=== PATIENT | male | born 1950 | race Two or more races ===

== ENCOUNTER 2017-07-31 21:07 | Emergency (ER) | payer MEDICARE, MEDICAID ==
[~2017-07-31] VITALS: Ht 175.3 cm; Wt 86.4 kg
[2017-07-31] MEDS ORDERED: TETANUS, DIPHTHERIA, PERTUSSIS VAC/PF 0.5ML (>7YR OLD) IM ONE (23:45)
[2017-07-31] MEDS ORDERED: LIDOCAINE HCL/EPINEPHRINE 1%-EPI 1:100,000 30 ML VIAL INFIL ONE (23:45)
[2017-08-01] MEDS ORDERED: LISINOPRIL 5MG TABLET PO ONE (02:15)
[2017-08-01 03:22] VITALS: BP 169/76
== END 2017-08-01 03:19 | disposition home or self-care (01) ==
LOC: ER 21:25
DX: S01.112A Laceration without foreign body of left eyelid and periocular area, initial encounter (principal); E11.9 Type 2 diabetes mellitus without complications; I25.2 Old myocardial infarction; F03.90 Unspecified dementia, unspecified severity, without behavioral disturbance, psychotic disturbance, mood disturbance, and anxiety; F17.200 Nicotine dependence, unspecified, uncomplicated; M85.80 Other specified disorders of bone density and structure, unspecified site; F10.10 Alcohol abuse, uncomplicated; Y90.9 Presence of alcohol in blood, level not specified; Z85.46 Personal history of malignant neoplasm of prostate; Z91.81 History of falling; W01.0XXA Fall on same level from slipping, tripping and stumbling without subsequent striking against object, initial encounter; Y93.89 Activity, other specified; Y92.012 Bathroom of single-family (private) house as the place of occurrence of the external cause
CPT/HCPCS: 12013; 70450; 72125; 90471; 90715; 99284

== ENCOUNTER 2018-04-18 17:36 | Inpatient (IN) | payer MEDICARE, MEDICAID ==
[2018-04-18] VITALS (8 sets, daily range): BP systolic 113–137; BP diastolic 66–81
[~2018-04-18] VITALS: Ht 167.6 cm; Wt 72.6 kg
[~2018-04-18 17:36] MED LIST: ETOMIDATE 2MG/ML 10ML VIAL IV ONE; VECURONIUM BROMIDE 10 MG/VIAL IV ONE
[2018-04-18] MEDS ORDERED: PIPERACILLIN/TAZ 3.375G PREMIX 50 ML IV ONE (17:45)
[2018-04-18] MEDS ORDERED: ETOMIDATE 2MG/ML 10ML VIAL IV ONE ×2 (17:45)
[2018-04-18] MEDS ORDERED: SODIUM CHLORIDE 0.9% 1000ML BAG (SEPSIS BOLUS) IV ONE (17:45)
[2018-04-18] MEDS ORDERED: VANCOMYCIN 1 G PREMIX 200 ML IV ONE (17:45)
[2018-04-18] MEDS ORDERED: METRONIDAZOLE 500 MG PREMIX 100 ML IV ONE (17:45)
[2018-04-18] MEDS ORDERED: VECURONIUM BROMIDE 10 MG/VIAL IV ONE (17:45)
[2018-04-18] MEDS ORDERED: PROPOFOL 10MG/ML 100ML 100 ML IV SCH (17:45)
[2018-04-18 18:32] LABS: BG BASE EXCESS 2.6 mmol/L (-2.0-2.0); BG CARBOXYHEMOGLOBIN 0.6 % (0.5-1.5); BG DEOXYHEMOGLOBIN 1.1 % (0.0-5.0); BG FRACTION INSPIRED OXYGEN 100; BG HCO3 ACT 30.4 mmol/L (22.0-26.0); BG METHEMOGLOBIN 0.1 % (0.0-1.5); BG OXYGEN SATURATION 98.9 % (92.0-98.5); BG OXYHEMOGLOBIN 98.2 % (94.0-97.0); BG PH 7.308 (7.350-7.450); BG PO2 198.1 mmHg (75.0-100.0); BG SAMPLE SITE RIGHT BRACHIAL; BG TIDAL VOLUME(mL) 500 mL; BG TOTAL HEMOGLOBIN 13.1 g/dL (12.0-18.0); BG VENT MODE VENT - A/C; BG VENT RATE 12 set
[2018-04-18 19:10] LABS: HEMOGLOBIN. 12.9 g/dL (14.0-18.0); MEAN CORPUSCULAR HEMOGLOBIN 30.3 pg (28.0-32.0); MEAN CORPUSCULAR VOLUME 93.8 fL (80.0-94.0); MEAN PLATELET VOLUME 8.7 fl (7.4-10.4); PLATELET 323 x1000/uL (130-400); RED BLOOD CELL COUNT 4.27 mill/uL (4.7-6.1)
[2018-04-18 19:17] LABS: CLARITY URINE TURBID (CLEAR); COLOR URINE DARK YELLOW (YELLOW); KETONES URINE TRACE (NEGATIVE); LEUKOCYTE ESTERASE URINE 2+ (NEGATIVE); NITRITE URINE NEGATIVE (NEGATIVE); OCCULT BLOOD URINE NEGATIVE (NEGATIVE); PH URINE 6.5 (4.5-8.0); PROTEIN URINE 1+ (NEGATIVE); SPECIFIC GRAVITY URINE 1.029 (1.005-1.030)
[2018-04-18 19:18] LABS: INR 1.1; PARTIAL THROMBOPLASTIN TIME 30.1 sec (23.4-31.0); PROTHROMBIN TIME 11.4 sec (9.1-11.1)
[2018-04-18 19:19] LABS: CHLORIDE 110 mEq/L (98-107)
[2018-04-18 19:39] LABS: PLATELET ESTIMATE NORMAL
[2018-04-18] MEDS ORDERED: ONDANSETRON HCL 4MG/2ML INJ IV PRN (20:00)
[2018-04-18] MEDS ORDERED: CLONIDINE 0.1MG TABLET GT PRN (20:00)
[2018-04-18] MEDS ORDERED: POTASSIUM CHLORIDE 20MEQ/PACKET PEG SCH (20:00)
[2018-04-18] MEDS ORDERED: DEXTROSE 50% WATER 50ML SYRINGE IV PRN (20:00)
[2018-04-18] MEDS ORDERED: BLOOD SUGAR DIAGNOSTIC STRIP TEST SCH (20:00)
[2018-04-18] MEDS ORDERED: IPRATROPIUM/ALBUTEROL 0.5-3(2.5)MG/3ML NEB INH PRN (20:00)
[2018-04-18] MEDS ORDERED: ASPIRIN 81MG TABLET GT ONE (20:15)
[2018-04-18] MEDS ORDERED: LORAZEPAM 2MG/ML CPJ IV PRN (20:45)
[2018-04-18] MEDS ORDERED: INSULIN LISPRO 100 UNITS/ML SUBCUT SCH (21:00)
[2018-04-18] MEDS: DEXT 5%/0.45% NACL 1000ML 1,000 ML IV SCH (23:25)
[2018-04-19] VITALS (93 sets, daily range): BP systolic 93–148; BP diastolic 57–83
[2018-04-19] MEDS: IPRATROPIUM/ALBUTEROL 0.5-3(2.5)MG/3ML NEB HHN SCH ×7 (00:44→23:55)
[2018-04-19] MEDS: INSULIN GLARGINE UD 100 UNITS/ML SYR SUBCUT SCH ×3 (02:32→22:50)
[2018-04-19] MEDS: BLOOD SUGAR DIAGNOSTIC STRIP TEST SCH ×4 (02:34→17:32)
[2018-04-19] MEDS: PIPERACILLIN/TAZ 3.375G PREMIX 50 ML IV SCH ×3 (02:38→22:49)
[2018-04-19] MEDS: INSULIN LISPRO 100 UNITS/ML SUBCUT SCH ×4 (02:40→17:42)
[2018-04-19] MEDS: FAMOTIDINE 20MG TABLET GT SCH ×3 (02:45→21:06)
[2018-04-19] MEDS ORDERED: POTASSIUM CHLORIDE 20MEQ/PACKET PEG SCH (03:45)
[2018-04-19 05:24] LABS: HEMATOCRIT. 36.4 % (42.0-52.0); HEMOGLOBIN. 11.9 g/dL (14.0-18.0); MEAN CORPUSCULAR HEMOGLOBIN 30.4 pg (28.0-32.0); MEAN CORPUSCULAR VOLUME 92.7 fL (80.0-94.0); MEAN PLATELET VOLUME 8.7 fl (7.4-10.4); PLATELET 297 x1000/uL (130-400); RED BLOOD CELL COUNT 3.93 mill/uL (4.7-6.1); RED CELL DISTRIBUTION WIDTH 13.4 % (11.6-14.6)
[2018-04-19 05:32] LABS: CHLORIDE 111 mEq/L (98-107)
[2018-04-19] MEDS: ACETAMINOPHEN 650MG/20.3ML UDC GT PRN ×2 (07:05→17:32)
[2018-04-19 08:42] LABS: BG BASE EXCESS 3.4 mmol/L (-2.0-2.0); BG CARBOXYHEMOGLOBIN 0.6 % (0.5-1.5); BG DEOXYHEMOGLOBIN 1.1 % (0.0-5.0); BG FRACTION INSPIRED OXYGEN 70; BG METHEMOGLOBIN 0.2 % (0.0-1.5); BG OXYGEN SATURATION 98.9 % (92.0-98.5); BG OXYHEMOGLOBIN 98.1 % (94.0-97.0); BG PCO2 42.2 mmHg (35.0-45.0); BG PH 7.439 (7.350-7.450); BG SAMPLE SITE RIGHT RADIAL; BG TIDAL VOLUME(mL) 500 mL; BG TOTAL HEMOGLOBIN 12.4 g/dL (12.0-18.0); BG VENT MODE VENT - A/C; BG VENT RATE 12 set
[2018-04-19] MEDS: ENOXAPARIN 40MG/0.4ML SYR SUBCUT SCH (09:08)
[2018-04-19] MEDS: ASPIRIN 325MG TABLET GT SCH (09:10)
[2018-04-19] MEDS ORDERED: IPRATROPIUM/ALBUTEROL 0.5-3(2.5)MG/3ML NEB HHN PRN (10:15)
[2018-04-19] MEDS: DEXT 5%/0.45% NACL 1000ML 1,000 ML IV SCH (11:12)
[2018-04-19 11:56] LABS: PLATELET ESTIMATE NORMAL
[2018-04-19] MEDS ORDERED: IPRATROPIUM/ALBUTEROL 0.5-3(2.5)MG/3ML NEB HHN SCH (12:00)
[2018-04-19] MEDS: FLUCONAZOLE 200 MG/100ML BAG 100 ML IV SCH (12:15)
[2018-04-19] MEDS: VANCOMYCIN 1 G PREMIX 200 ML IV SCH (12:26)
[2018-04-20] VITALS (95 sets, daily range): BP systolic 103–158; BP diastolic 56–86
[2018-04-20] MEDS: BLOOD SUGAR DIAGNOSTIC STRIP TEST SCH ×5 (00:17→23:14)
[2018-04-20] MEDS: VANCOMYCIN 1 G PREMIX 200 ML IV SCH (00:40)
[2018-04-20] MEDS: INSULIN LISPRO 100 UNITS/ML SUBCUT SCH ×5 (00:40→23:18)
[2018-04-20] MEDS: IPRATROPIUM/ALBUTEROL 0.5-3(2.5)MG/3ML NEB HHN SCH ×6 (03:20→23:39)
[2018-04-20] MEDS: DEXT 5%/0.45% NACL 1000ML 1,000 ML IV SCH ×2 (05:11→12:28)
[2018-04-20 05:49] LABS: CREATINE KINASE 117 IU/L (39-308)
[2018-04-20 05:50] LABS: CREATINE KINASE MB FRACTION < 1.0 ng/mL (0.5-3.6)
[2018-04-20 07:59] LABS: BG BASE EXCESS 3.9 mmol/L (-2.0-2.0); BG CARBOXYHEMOGLOBIN 0.2 % (0.5-1.5); BG DEOXYHEMOGLOBIN 0.9 % (0.0-5.0); BG FRACTION INSPIRED OXYGEN 50; BG HCO3 ACT 27.9 mmol/L (22.0-26.0); BG METHEMOGLOBIN 0.3 % (0.0-1.5); BG OXYGEN SATURATION 99.1 % (92.0-98.5); BG OXYHEMOGLOBIN 98.6 % (94.0-97.0); BG PCO2 40.1 mmHg (35.0-45.0); BG PH 7.461 (7.350-7.450); BG PO2 217.8 mmHg (75.0-100.0); BG SAMPLE SITE RIGHT BRACHIAL; BG TIDAL VOLUME(mL) 500 mL; BG TOTAL HEMOGLOBIN 11.9 g/dL (12.0-18.0); BG VENT MODE VENT - A/C; BG VENT RATE 12 set
[2018-04-20] MEDS: FAMOTIDINE 20MG TABLET GT SCH ×2 (09:36→20:25)
[2018-04-20] MEDS: ASPIRIN 325MG TABLET GT SCH (09:36)
[2018-04-20] MEDS: ENOXAPARIN 40MG/0.4ML SYR SUBCUT SCH (09:37)
[2018-04-20] MEDS: PIPERACILLIN/TAZ 3.375G PREMIX 50 ML IV SCH ×3 (09:39→22:29)
[2018-04-20 10:12] LABS: CHLORIDE 114 mEq/L (98-107)
[2018-04-20 10:17] LABS: HEMATOCRIT. 34.6 % (42.0-52.0); HEMOGLOBIN. 11.2 g/dL (14.0-18.0); MEAN CORPUSCULAR HEMOGLOBIN 29.9 pg (28.0-32.0); MEAN CORPUSCULAR VOLUME 92.7 fL (80.0-94.0); MEAN PLATELET VOLUME 9.2 fl (7.4-10.4); PLATELET 365 x1000/uL (130-400); RED BLOOD CELL COUNT 3.74 mill/uL (4.7-6.1); RED CELL DISTRIBUTION WIDTH 13.8 % (11.6-14.6)
[2018-04-20] MEDS: INSULIN GLARGINE UD 100 UNITS/ML SYR SUBCUT SCH ×2 (10:57→21:32)
[2018-04-20 11:16] LABS: PLATELET ESTIMATE NORMAL
[2018-04-20] MEDS: FLUCONAZOLE 200 MG/100ML BAG 100 ML IV SCH (12:26)
[2018-04-20] MEDS ORDERED: POTASSIUM CHLORIDE 20MEQ/PACKET GT NR (13:30)
[2018-04-20] MEDS: VANCOMYCIN 1250MG in DEXTROSE 5% WATER 250ML IV SCH (14:49)
[2018-04-20] MEDS: POTASSIUM CHLORIDE INJ 40 MEQ in DEXTROSE 5% WATER 1,000 ML IV SCH (15:39)
[2018-04-21] VITALS (95 sets, daily range): BP systolic 106–161; BP diastolic 46–87
[2018-04-21] MEDS: IPRATROPIUM/ALBUTEROL 0.5-3(2.5)MG/3ML NEB HHN SCH ×5 (03:55→20:16)
[2018-04-21] MEDS: POTASSIUM CHLORIDE INJ 40 MEQ in DEXTROSE 5% WATER 1,000 ML IV SCH ×2 (04:04→17:38)
[2018-04-21 05:06] LABS: CHLORIDE 111 mEq/L (98-107)
[2018-04-21 05:13] LABS: PHOSPHORUS 2.4 mg/dL (2.5-4.9)
[2018-04-21] MEDS: BLOOD SUGAR DIAGNOSTIC STRIP TEST SCH ×3 (05:26→17:07)
[2018-04-21] MEDS: INSULIN LISPRO 100 UNITS/ML SUBCUT SCH ×3 (05:26→17:40)
[2018-04-21] MEDS: PIPERACILLIN/TAZ 3.375G PREMIX 50 ML IV SCH ×3 (06:08→23:16)
[2018-04-21 07:37] LABS: BG BASE EXCESS 4.7 mmol/L (-2.0-2.0); BG CARBOXYHEMOGLOBIN 0.3 % (0.5-1.5); BG DEOXYHEMOGLOBIN 1.9 % (0.0-5.0); BG FRACTION INSPIRED OXYGEN 40; BG HCO3 ACT 29.4 mmol/L (22.0-26.0); BG METHEMOGLOBIN 0.3 % (0.0-1.5); BG OXYGEN SATURATION 98.1 % (92.0-98.5); BG OXYHEMOGLOBIN 97.5 % (94.0-97.0); BG PCO2 44.4 mmHg (35.0-45.0); BG PH 7.439 (7.350-7.450); BG PO2 133.2 mmHg (75.0-100.0); BG SAMPLE SITE RIGHT RADIAL; BG TIDAL VOLUME(mL) 500 mL; BG TOTAL HEMOGLOBIN 10.1 g/dL (12.0-18.0); BG VENT MODE VENT - A/C; BG VENT RATE 12 set
[2018-04-21] MEDS: FAMOTIDINE 20MG TABLET GT SCH ×2 (08:42→20:24)
[2018-04-21] MEDS: VANCOMYCIN 1250MG in DEXTROSE 5% WATER 250ML IV SCH (08:42)
[2018-04-21] MEDS: ASPIRIN 325MG TABLET GT SCH (08:42)
[2018-04-21] MEDS: ENOXAPARIN 40MG/0.4ML SYR SUBCUT SCH (08:43)
[2018-04-21] MEDS: CARVEDILOL 3.125 MG TABLET PO SCH ×2 (10:25→20:24)
[2018-04-21] MEDS: LOSARTAN POTASSIUM 25 MG TABLET PO SCH (10:26)
[2018-04-21] MEDS: INSULIN GLARGINE UD 100 UNITS/ML SYR SUBCUT SCH ×2 (10:27→23:20)
[2018-04-21] MEDS: FLUCONAZOLE 200 MG/100ML BAG 100 ML IV SCH (11:47)
[2018-04-21 13:39] LABS: BG BASE EXCESS 4.6 mmol/L (-2.0-2.0); BG CARBOXYHEMOGLOBIN 0.6 % (0.5-1.5); BG DEOXYHEMOGLOBIN 1.7 % (0.0-5.0); BG FRACTION INSPIRED OXYGEN 35; BG HCO3 ACT 28.8 mmol/L (22.0-26.0); BG OXYGEN SATURATION 98.3 % (92.0-98.5); BG OXYHEMOGLOBIN 97.7 % (94.0-97.0); BG PCO2 41.4 mmHg (35.0-45.0); BG PH 7.461 (7.350-7.450); BG PO2 118.4 mmHg (75.0-100.0); BG PRESSURE SUPPORT 8; BG SAMPLE SITE RIGHT RADIAL; BG TOTAL HEMOGLOBIN 11.3 g/dL (12.0-18.0); BG VENT MODE VENT - CPAP
[2018-04-22] VITALS (45 sets, daily range): BP systolic 116–149; BP diastolic 58–79
[2018-04-22] MEDS: IPRATROPIUM/ALBUTEROL 0.5-3(2.5)MG/3ML NEB HHN SCH ×6 (00:10→20:08)
[2018-04-22] MEDS: INSULIN LISPRO 100 UNITS/ML SUBCUT SCH ×4 (01:42→18:24)
[2018-04-22] MEDS: VANCOMYCIN 1250MG in DEXTROSE 5% WATER 250ML IV SCH (02:56)
[2018-04-22] MEDS: BLOOD SUGAR DIAGNOSTIC STRIP TEST SCH ×4 (05:16→18:20)
[2018-04-22] MEDS: PIPERACILLIN/TAZ 3.375G PREMIX 50 ML IV SCH ×3 (06:12→23:23)
[2018-04-22 06:45] LABS: HEMATOCRIT. 32.9 % (42.0-52.0); HEMOGLOBIN. 11.1 g/dL (14.0-18.0); MEAN CORPUSCULAR HEMOGLOBIN 30.4 pg (28.0-32.0); MEAN CORPUSCULAR VOLUME 90.5 fL (80.0-94.0); MEAN PLATELET VOLUME 8.8 fl (7.4-10.4); PLATELET 403 x1000/uL (130-400); RED BLOOD CELL COUNT 3.63 mill/uL (4.7-6.1)
[2018-04-22 06:51] LABS: CHLORIDE 107 mEq/L (98-107)
[2018-04-22] MEDS: CARVEDILOL 3.125 MG TABLET PO SCH ×2 (09:38→20:11)
[2018-04-22] MEDS: FAMOTIDINE 20MG TABLET GT SCH ×2 (09:38→20:11)
[2018-04-22] MEDS: ASPIRIN 325MG TABLET GT SCH (09:38)
[2018-04-22] MEDS: ENOXAPARIN 40MG/0.4ML SYR SUBCUT SCH (09:38)
[2018-04-22] MEDS: LOSARTAN POTASSIUM 25 MG TABLET PO SCH (09:38)
[2018-04-22] MEDS: INSULIN GLARGINE UD 100 UNITS/ML SYR SUBCUT SCH ×2 (09:39→22:25)
[2018-04-22 11:14] LABS: PLATELET ESTIMATE SLIGHTLY INCREASED
[2018-04-22] MEDS: POTASSIUM CHLORIDE INJ 40 MEQ in DEXTROSE 5% WATER 1,000 ML IV SCH (12:28)
[2018-04-22] MEDS: FLUCONAZOLE 200 MG/100ML BAG 100 ML IV SCH (12:30)
[2018-04-23] VITALS (24 sets, daily range): BP systolic 108–146; BP diastolic 56–79
[2018-04-23] MEDS: IPRATROPIUM/ALBUTEROL 0.5-3(2.5)MG/3ML NEB HHN SCH ×3 (00:06→19:56)
[2018-04-23] MEDS: INSULIN LISPRO 100 UNITS/ML SUBCUT SCH ×4 (01:21→18:08)
[2018-04-23] MEDS: POTASSIUM CHLORIDE INJ 40 MEQ in DEXTROSE 5% WATER 1,000 ML IV SCH ×2 (01:50→10:04)
[2018-04-23] MEDS: BLOOD SUGAR DIAGNOSTIC STRIP TEST SCH ×4 (06:03→18:07)
[2018-04-23] MEDS ORDERED: LIDOCAINE HCL 1% 20ML VIAL (Pyxis) INJ ONE (06:44)
[2018-04-23] MEDS: PIPERACILLIN/TAZ 3.375G PREMIX 50 ML IV SCH ×3 (07:22→23:05)
[2018-04-23] MEDS: ENOXAPARIN 40MG/0.4ML SYR SUBCUT SCH (08:45)
[2018-04-23] MEDS: ASPIRIN 325MG TABLET GT SCH (08:45)
[2018-04-23] MEDS: FAMOTIDINE 20MG TABLET GT SCH ×2 (08:46→21:34)
[2018-04-23] MEDS: CARVEDILOL 3.125 MG TABLET PO SCH ×2 (08:46→21:34)
[2018-04-23] MEDS: LOSARTAN POTASSIUM 25 MG TABLET PO SCH (08:46)
[2018-04-23] MEDS: INSULIN GLARGINE UD 100 UNITS/ML SYR SUBCUT SCH ×2 (10:05→22:11)
[2018-04-23] MEDS: FLUCONAZOLE 200 MG/100ML BAG 100 ML IV SCH (10:56)
[2018-04-24] VITALS (43 sets, daily range): BP systolic 80–147; BP diastolic 53–106
[2018-04-24] MEDS: IPRATROPIUM/ALBUTEROL 0.5-3(2.5)MG/3ML NEB HHN SCH ×6 (00:38→20:31)
[2018-04-24] MEDS: POTASSIUM CHLORIDE INJ 40 MEQ in DEXTROSE 5% WATER 1,000 ML IV SCH ×2 (01:15→14:30)
[2018-04-24] MEDS: INSULIN LISPRO 100 UNITS/ML SUBCUT SCH ×5 (06:00→23:05)
[2018-04-24] MEDS: BLOOD SUGAR DIAGNOSTIC STRIP TEST SCH ×5 (06:33→23:03)
[2018-04-24] MEDS: PIPERACILLIN/TAZ 3.375G PREMIX 50 ML IV SCH (06:34)
[2018-04-24] MEDS: ASPIRIN 325MG TABLET GT SCH (08:34)
[2018-04-24] MEDS: FAMOTIDINE 20MG TABLET GT SCH ×2 (08:34→20:34)
[2018-04-24] MEDS: LOSARTAN POTASSIUM 25 MG TABLET PO SCH (08:34)
[2018-04-24] MEDS: ENOXAPARIN 40MG/0.4ML SYR SUBCUT SCH (08:34)
[2018-04-24] MEDS: CARVEDILOL 3.125 MG TABLET PO SCH ×2 (09:00→20:34)
[2018-04-24 09:46] LABS: HEMATOCRIT. 35.6 % (42.0-52.0); HEMOGLOBIN. 11.8 g/dL (14.0-18.0); MEAN CORPUSCULAR HEMOGLOBIN 29.8 pg (28.0-32.0); MEAN CORPUSCULAR VOLUME 89.8 fL (80.0-94.0); PLATELET 471 x1000/uL (130-400); RED BLOOD CELL COUNT 3.96 mill/uL (4.7-6.1); RED CELL DISTRIBUTION WIDTH 13.2 % (11.6-14.6)
[2018-04-24 09:54] LABS: CHLORIDE 101 mEq/L (98-107)
[2018-04-24 10:02] LABS: PHOSPHORUS 3.2 mg/dL (2.5-4.9)
[2018-04-24 11:15] LABS: BG DEOXYHEMOGLOBIN 10.5 % (0.0-5.0); BG FRACTION INSPIRED OXYGEN 50; BG HCO3 ACT 28.6 mmol/L (22.0-26.0); BG METHEMOGLOBIN 0.3 % (0.0-1.5); BG OXYGEN SATURATION 89.4 % (92.0-98.5); BG OXYHEMOGLOBIN 88.2 % (94.0-97.0); BG PCO2 38.8 mmHg (35.0-45.0); BG PH 7.486 (7.350-7.450); BG PO2 56.1 mmHg (75.0-100.0); BG SAMPLE SITE RIGHT RADIAL; BG TOTAL HEMOGLOBIN 12.2 g/dL (12.0-18.0); BG VENT MODE MASK - VENTI
[2018-04-24] MEDS: INSULIN GLARGINE UD 100 UNITS/ML SYR SUBCUT SCH ×2 (11:37→22:58)
[2018-04-24] MEDS ORDERED: ENOXAPARIN 30MG/0.3ML SYR SUBCUT NR (12:00)
[2018-04-24] MEDS: CEFTRIAXONE 1 G PREMIX 50 ML IV SCH (12:22)
[2018-04-24 13:10] LABS: BG BASE EXCESS 3.2 mmol/L (-2.0-2.0); BG CARBOXYHEMOGLOBIN 0.4 % (0.5-1.5); BG DEOXYHEMOGLOBIN 4.4 % (0.0-5.0); BG FRACTION INSPIRED OXYGEN 40; BG HCO3 ACT 26.7 mmol/L (22.0-26.0); BG METHEMOGLOBIN 0.3 % (0.0-1.5); BG OXYGEN SATURATION 95.6 % (92.0-98.5); BG OXYHEMOGLOBIN 94.9 % (94.0-97.0); BG PCO2 36.9 mmHg (35.0-45.0); BG PH 7.478 (7.350-7.450); BG SAMPLE SITE RIGHT RADIAL; BG TIDAL VOLUME(mL) 500 mL; BG TOTAL HEMOGLOBIN 12.4 g/dL (12.0-18.0); BG VENT MODE VENT - A/C; BG VENT RATE 12 set
[2018-04-24 13:49] LABS: PLATELET ESTIMATE INCREASED
[2018-04-24] MEDS ORDERED: ETOMIDATE 2MG/ML 10ML VIAL IV ONE (14:20)
[2018-04-24] MEDS ORDERED: VECURONIUM BROMIDE 10 MG/VIAL IV ONE (14:20)
[2018-04-24] MEDS ORDERED: SODIUM CHLORIDE 0.9% 10ML VIAL ONE (14:20)
[2018-04-24] MEDS ORDERED: ENOXAPARIN 80MG/0.8ML SYR SUBCUT SCH (21:00)
[2018-04-25] VITALS (80 sets, daily range): BP systolic 92–153; BP diastolic 50–74
[2018-04-25] MEDS: IPRATROPIUM/ALBUTEROL 0.5-3(2.5)MG/3ML NEB HHN SCH ×5 (00:18→15:56)
[2018-04-25] MEDS: POTASSIUM CHLORIDE INJ 40 MEQ in DEXTROSE 5% WATER 1,000 ML IV SCH (03:04)
[2018-04-25] MEDS: BLOOD SUGAR DIAGNOSTIC STRIP TEST SCH ×4 (05:06→23:42)
[2018-04-25] MEDS: INSULIN LISPRO 100 UNITS/ML SUBCUT SCH ×4 (05:27→23:43)
[2018-04-25 05:36] LABS: INR 1.1; PARTIAL THROMBOPLASTIN TIME 29.7 sec (23.4-31.0); PROTHROMBIN TIME 10.9 sec (9.1-11.1)
[2018-04-25 05:42] LABS: CHLORIDE 98 mEq/L (98-107)
[2018-04-25 05:49] LABS: HEMATOCRIT. 35.1 % (42.0-52.0); HEMOGLOBIN. 11.7 g/dL (14.0-18.0); MEAN CORPUSCULAR HEMOGLOBIN 29.7 pg (28.0-32.0); MEAN CORPUSCULAR VOLUME 89.2 fL (80.0-94.0); MEAN PLATELET VOLUME 8.7 fl (7.4-10.4); PLATELET 521 x1000/uL (130-400); RED BLOOD CELL COUNT 3.93 mill/uL (4.7-6.1); RED CELL DISTRIBUTION WIDTH 13.3 % (11.6-14.6)
[2018-04-25] MEDS: ASPIRIN 325MG TABLET GT SCH (07:32)
[2018-04-25] MEDS: FAMOTIDINE 20MG TABLET GT SCH ×2 (07:32→21:49)
[2018-04-25 08:46] LABS: PLATELET ESTIMATE INCREASED
[2018-04-25] MEDS: LOSARTAN POTASSIUM 25 MG TABLET PO SCH (09:00)
[2018-04-25] MEDS: CARVEDILOL 3.125 MG TABLET PO SCH ×2 (09:00→21:00)
[2018-04-25] MEDS: INSULIN GLARGINE UD 100 UNITS/ML SYR SUBCUT SCH ×2 (10:49→22:06)
[2018-04-25] MEDS ORDERED: MIDAZOLAM HCL 2 MG/2 ML VIAL ONE (11:29)
[2018-04-25] MEDS ORDERED: FENTANYL CITRATE/PF 50MCG/ML 2ML VIAL ONE (11:29)
[2018-04-25] MEDS ORDERED: PROPOFOL 200MG/20ML VIAL IV ONE (11:30)
[2018-04-25] MEDS ORDERED: CEFAZOLIN SODIUM 1000MG/VIAL ONE (11:30)
[2018-04-25] MEDS ORDERED: SODIUM CHLORIDE 0.9% 10ML VIAL ONE (11:32)
[2018-04-25] MEDS ORDERED: VECURONIUM BROMIDE 10 MG/VIAL IV ONE (11:32)
[2018-04-25] MEDS: CEFTRIAXONE 1 G PREMIX 50 ML IV SCH (11:49)
[2018-04-26] VITALS (12 sets, daily range): BP systolic 99–135; BP diastolic 51–77
[2018-04-26] MEDS: IPRATROPIUM/ALBUTEROL 0.5-3(2.5)MG/3ML NEB HHN SCH ×6 (00:23→20:14)
[2018-04-26] MEDS: INSULIN LISPRO 100 UNITS/ML SUBCUT SCH ×4 (05:37→22:59)
[2018-04-26] MEDS: BLOOD SUGAR DIAGNOSTIC STRIP TEST SCH ×4 (05:37→22:59)
[2018-04-26] MEDS: CARVEDILOL 3.125 MG TABLET PO SCH ×2 (08:21→20:30)
[2018-04-26] MEDS: FAMOTIDINE 20MG TABLET GT SCH ×2 (08:21→20:30)
[2018-04-26] MEDS: LOSARTAN POTASSIUM 25 MG TABLET PO SCH (08:21)
[2018-04-26] MEDS: ASPIRIN 325MG TABLET GT SCH (09:00)
[2018-04-26] MEDS: INSULIN GLARGINE UD 100 UNITS/ML SYR SUBCUT SCH ×2 (09:03→23:00)
[2018-04-26] MEDS: CEFTRIAXONE 1 G PREMIX 50 ML IV SCH (11:59)
[2018-04-26] MEDS: ENOXAPARIN 40MG/0.4ML SYR SUBCUT SCH (13:59)
[2018-04-26] MEDS ORDERED: LORAZEPAM 2MG/ML CPJ IV PRN (15:00)
[2018-04-26 15:10] LABS: BG CARBOXYHEMOGLOBIN 0.7 % (0.5-1.5); BG DEOXYHEMOGLOBIN 3.9 % (0.0-5.0); BG FRACTION INSPIRED OXYGEN 100; BG METHEMOGLOBIN 0.1 % (0.0-1.5); BG OXYGEN SATURATION 96.1 % (92.0-98.5); BG OXYHEMOGLOBIN 95.3 % (94.0-97.0); BG PCO2 40.5 mmHg (35.0-45.0); BG PH 7.473 (7.350-7.450); BG PO2 80.5 mmHg (75.0-100.0); BG SAMPLE SITE RIGHT BRACHIAL; BG TIDAL VOLUME(mL) 500 mL; BG TOTAL HEMOGLOBIN 11.4 g/dL (12.0-18.0); BG VENT MODE VENT - A/C; BG VENT RATE 12 set
[2018-04-27] VITALS (13 sets, daily range): BP systolic 108–131; BP diastolic 53–65
[2018-04-27] MEDS: IPRATROPIUM/ALBUTEROL 0.5-3(2.5)MG/3ML NEB HHN SCH ×6 (00:03→20:04)
[2018-04-27] MEDS: BLOOD SUGAR DIAGNOSTIC STRIP TEST SCH ×3 (05:17→18:04)
[2018-04-27] MEDS: INSULIN LISPRO 100 UNITS/ML SUBCUT SCH ×3 (05:17→18:00)
[2018-04-27] MEDS: FAMOTIDINE 20MG TABLET GT SCH ×2 (08:41→21:02)
[2018-04-27] MEDS: LOSARTAN POTASSIUM 25 MG TABLET PO SCH (08:41)
[2018-04-27] MEDS: ASPIRIN 325MG TABLET GT SCH (08:42)
[2018-04-27] MEDS: CARVEDILOL 3.125 MG TABLET PO SCH ×2 (08:42→21:00)
[2018-04-27] MEDS: INSULIN GLARGINE UD 100 UNITS/ML SYR SUBCUT SCH ×2 (10:06→21:03)
[2018-04-27] MEDS: CEFTRIAXONE 1 G PREMIX 50 ML IV SCH (12:23)
[2018-04-27] MEDS: ENOXAPARIN 40MG/0.4ML SYR SUBCUT SCH (13:46)
[2018-04-28] VITALS (12 sets, daily range): BP systolic 118–138; BP diastolic 59–67
[2018-04-28] MEDS: IPRATROPIUM/ALBUTEROL 0.5-3(2.5)MG/3ML NEB HHN SCH ×6 (00:08→20:17)
[2018-04-28] MEDS: BLOOD SUGAR DIAGNOSTIC STRIP TEST SCH ×4 (00:29→18:01)
[2018-04-28] MEDS: INSULIN LISPRO 100 UNITS/ML SUBCUT SCH ×4 (05:21→18:00)
[2018-04-28] MEDS: ASPIRIN 325MG TABLET GT SCH (09:37)
[2018-04-28] MEDS: LOSARTAN POTASSIUM 25 MG TABLET PO SCH (09:37)
[2018-04-28] MEDS: FAMOTIDINE 20MG TABLET GT SCH ×2 (09:37→20:51)
[2018-04-28] MEDS: CARVEDILOL 3.125 MG TABLET PO SCH ×2 (09:37→20:51)
[2018-04-28] MEDS: INSULIN GLARGINE UD 100 UNITS/ML SYR SUBCUT SCH ×2 (10:58→22:00)
[2018-04-28] MEDS: CEFTRIAXONE 1 G PREMIX 50 ML IV SCH (11:00)
[2018-04-28] MEDS: ENOXAPARIN 40MG/0.4ML SYR SUBCUT SCH (14:52)
[2018-04-29] VITALS (17 sets, daily range): BP systolic 111–147; BP diastolic 57–81
[2018-04-29] MEDS: IPRATROPIUM/ALBUTEROL 0.5-3(2.5)MG/3ML NEB HHN SCH ×6 (00:16→20:37)
[2018-04-29] MEDS: INSULIN LISPRO 100 UNITS/ML SUBCUT SCH ×3 (06:00→12:30)
[2018-04-29] MEDS: BLOOD SUGAR DIAGNOSTIC STRIP TEST SCH ×4 (06:00→23:58)
[2018-04-29] MEDS: ASPIRIN 325MG TABLET GT SCH (09:50)
[2018-04-29] MEDS: FAMOTIDINE 20MG TABLET GT SCH ×2 (09:50→21:30)
[2018-04-29] MEDS: CARVEDILOL 3.125 MG TABLET PO SCH ×2 (09:51→21:30)
[2018-04-29] MEDS: LOSARTAN POTASSIUM 25 MG TABLET PO SCH (09:51)
[2018-04-29] MEDS: INSULIN GLARGINE UD 100 UNITS/ML SYR SUBCUT SCH (09:55)
[2018-04-29] MEDS: ENOXAPARIN 40MG/0.4ML SYR SUBCUT SCH (13:46)
[2018-04-29] MEDS: CEFTRIAXONE 1 G PREMIX 50 ML IV SCH (13:53)
[2018-04-30] VITALS (12 sets, daily range): BP systolic 121–140; BP diastolic 58–69
[2018-04-30] MEDS: INSULIN LISPRO 100 UNITS/ML SUBCUT SCH ×4 (00:02→17:26)
[2018-04-30] MEDS: INSULIN GLARGINE UD 100 UNITS/ML SYR SUBCUT SCH ×2 (00:02→09:52)
[2018-04-30] MEDS: IPRATROPIUM/ALBUTEROL 0.5-3(2.5)MG/3ML NEB HHN SCH ×7 (00:05→23:46)
[2018-04-30] MEDS: BLOOD SUGAR DIAGNOSTIC STRIP TEST SCH ×3 (06:48→17:25)
[2018-04-30 08:06] LABS: HEMATOCRIT. 30.4 % (42.0-52.0); HEMOGLOBIN. 10.4 g/dL (14.0-18.0); MEAN CORPUSCULAR HEMOGLOBIN 30.4 pg (28.0-32.0); MEAN PLATELET VOLUME 7.8 fl (7.4-10.4); PLATELET 468 x1000/uL (130-400); RED BLOOD CELL COUNT 3.42 mill/uL (4.7-6.1); RED CELL DISTRIBUTION WIDTH 13.2 % (11.6-14.6)
[2018-04-30 08:22] LABS: CHLORIDE 101 mEq/L (98-107)
[2018-04-30] MEDS: FAMOTIDINE 20MG TABLET GT SCH ×2 (09:50→20:49)
[2018-04-30] MEDS: CARVEDILOL 3.125 MG TABLET PO SCH ×2 (09:51→20:49)
[2018-04-30] MEDS: ASPIRIN 325MG TABLET GT SCH (09:51)
[2018-04-30] MEDS: LOSARTAN POTASSIUM 25 MG TABLET PO SCH (09:51)
[2018-04-30 12:14] LABS: PLATELET ESTIMATE INCREASED
[2018-04-30] MEDS: CEFTRIAXONE 1 G PREMIX 50 ML IV SCH (12:16)
[2018-04-30] MEDS: ENOXAPARIN 40MG/0.4ML SYR SUBCUT SCH (14:25)
[2018-05-01] VITALS (12 sets, daily range): BP systolic 112–146; BP diastolic 57–102
[2018-05-01] MEDS: INSULIN GLARGINE UD 100 UNITS/ML SYR SUBCUT SCH ×3 (00:40→23:57)
[2018-05-01] MEDS: BLOOD SUGAR DIAGNOSTIC STRIP TEST SCH ×5 (00:40→23:54)
[2018-05-01] MEDS: IPRATROPIUM/ALBUTEROL 0.5-3(2.5)MG/3ML NEB HHN SCH ×5 (03:47→20:08)
[2018-05-01 06:00] LABS: BASOPHILS % 1.2 % (0.0-2.0); HEMATOCRIT. 30.9 % (42.0-52.0); HEMOGLOBIN. 10.4 g/dL (14.0-18.0); LYMPHOCYTES % 8.8 % (20.0-50.0); MEAN CORPUSCULAR HEMOGLOBIN 29.8 pg (28.0-32.0); MEAN CORPUSCULAR VOLUME 88.7 fL (80.0-94.0); MONOCYTES % 4.5 % (2.0-8.0); NEUTROPHILS % 83.5 % (40.0-76.0); PLATELET 425 x1000/uL (130-400); RED BLOOD CELL COUNT 3.48 mill/uL (4.7-6.1); RED CELL DISTRIBUTION WIDTH 13.4 % (11.6-14.6)
[2018-05-01 06:24] LABS: CHLORIDE 101 mEq/L (98-107)
[2018-05-01] MEDS: INSULIN LISPRO 100 UNITS/ML SUBCUT SCH ×4 (08:49→18:00)
[2018-05-01] MEDS: ASPIRIN 325MG TABLET GT SCH (09:49)
[2018-05-01] MEDS: FAMOTIDINE 20MG TABLET GT SCH ×2 (09:49→21:24)
[2018-05-01] MEDS: CARVEDILOL 3.125 MG TABLET PO SCH ×2 (09:50→21:00)
[2018-05-01] MEDS: LOSARTAN POTASSIUM 25 MG TABLET PO SCH (09:50)
[2018-05-01] MEDS ORDERED: LIDOCAINE HCL/EPINEPHRINE 1%-EPI 1:100,000 20 ML VIAL INFIL NR (12:00)
[2018-05-01] MEDS: CEFTRIAXONE 1 G PREMIX 50 ML IV SCH (12:11)
[2018-05-01] MEDS: ENOXAPARIN 40MG/0.4ML SYR SUBCUT SCH (13:48)
[2018-05-02] VITALS (11 sets, daily range): BP systolic 97–161; BP diastolic 55–75
[2018-05-02] MEDS: INSULIN LISPRO 100 UNITS/ML SUBCUT SCH ×5 (00:01→23:36)
[2018-05-02] MEDS: ACETYLCYSTEINE 100MG/ML 10% VIAL 4ML INH SCH ×4 (00:13→20:15)
[2018-05-02] MEDS: IPRATROPIUM/ALBUTEROL 0.5-3(2.5)MG/3ML NEB HHN SCH ×6 (00:13→20:15)
[2018-05-02] MEDS: BLOOD SUGAR DIAGNOSTIC STRIP TEST SCH ×4 (07:00→23:36)
[2018-05-02] MEDS: ASPIRIN 325MG TABLET GT SCH (08:42)
[2018-05-02] MEDS: LOSARTAN POTASSIUM 25 MG TABLET PO SCH (08:42)
[2018-05-02] MEDS: FAMOTIDINE 20MG TABLET GT SCH ×2 (08:42→21:55)
[2018-05-02] MEDS: CARVEDILOL 3.125 MG TABLET PO SCH ×2 (08:43→21:00)
[2018-05-02] MEDS: INSULIN GLARGINE UD 100 UNITS/ML SYR SUBCUT SCH ×2 (10:07→22:00)
[2018-05-02] MEDS: ENOXAPARIN 40MG/0.4ML SYR SUBCUT SCH (13:00)
[2018-05-03] VITALS (9 sets, daily range): BP systolic 105–133; BP diastolic 52–71
[2018-05-03] MEDS: IPRATROPIUM/ALBUTEROL 0.5-3(2.5)MG/3ML NEB HHN SCH ×6 (01:12→20:42)
[2018-05-03] MEDS: BLOOD SUGAR DIAGNOSTIC STRIP TEST SCH ×4 (07:00→23:24)
[2018-05-03] MEDS: INSULIN LISPRO 100 UNITS/ML SUBCUT SCH ×4 (07:00→23:27)
[2018-05-03] MEDS: ACETYLCYSTEINE 100MG/ML 10% VIAL 4ML INH SCH ×2 (08:00→15:45)
[2018-05-03] MEDS: ASPIRIN 325MG TABLET GT SCH (09:53)
[2018-05-03] MEDS: FAMOTIDINE 20MG TABLET GT SCH ×2 (09:54→21:39)
[2018-05-03] MEDS: CARVEDILOL 3.125 MG TABLET PO SCH ×2 (09:54→21:40)
[2018-05-03] MEDS: LOSARTAN POTASSIUM 25 MG TABLET PO SCH (09:54)
[2018-05-03] MEDS: INSULIN GLARGINE UD 100 UNITS/ML SYR SUBCUT SCH ×2 (09:56→23:23)
[2018-05-03] MEDS: ENOXAPARIN 40MG/0.4ML SYR SUBCUT SCH (13:47)
[2018-05-03] MEDS: SODIUM HYPOCHLORITE 0.125% 473ML SOLUTION TOP SCH (15:00)
[2018-05-04] VITALS (13 sets, daily range): BP systolic 101–124; BP diastolic 42–61
[2018-05-04] MEDS: ACETYLCYSTEINE 100MG/ML 10% VIAL 4ML INH SCH ×3 (01:02→15:39)
[2018-05-04] MEDS: IPRATROPIUM/ALBUTEROL 0.5-3(2.5)MG/3ML NEB HHN SCH ×6 (01:02→21:37)
[2018-05-04] MEDS: BLOOD SUGAR DIAGNOSTIC STRIP TEST SCH ×3 (06:00→18:06)
[2018-05-04] MEDS: INSULIN LISPRO 100 UNITS/ML SUBCUT SCH ×3 (06:00→18:12)
[2018-05-04] MEDS: CARVEDILOL 3.125 MG TABLET PO SCH ×2 (09:00→21:00)
[2018-05-04] MEDS: ASPIRIN 325MG TABLET GT SCH (09:50)
[2018-05-04] MEDS: LOSARTAN POTASSIUM 25 MG TABLET PO SCH (09:50)
[2018-05-04] MEDS: FAMOTIDINE 20MG TABLET GT SCH ×2 (09:50→21:08)
[2018-05-04] MEDS: SODIUM HYPOCHLORITE 0.125% 473ML SOLUTION TOP SCH (09:54)
[2018-05-04] MEDS: INSULIN GLARGINE UD 100 UNITS/ML SYR SUBCUT SCH ×2 (09:56→23:07)
[2018-05-04] MEDS: ENOXAPARIN 40MG/0.4ML SYR SUBCUT SCH (13:13)
[2018-05-05] VITALS (10 sets, daily range): BP systolic 116–144; BP diastolic 53–64
[2018-05-05] MEDS: IPRATROPIUM/ALBUTEROL 0.5-3(2.5)MG/3ML NEB HHN SCH ×4 (01:15→15:41)
[2018-05-05] MEDS: ACETYLCYSTEINE 100MG/ML 10% VIAL 4ML INH SCH ×3 (01:16→15:30)
[2018-05-05] MEDS: INSULIN LISPRO 100 UNITS/ML SUBCUT SCH ×4 (06:00→18:00)
[2018-05-05] MEDS: BLOOD SUGAR DIAGNOSTIC STRIP TEST SCH ×4 (06:00→18:38)
[2018-05-05] MEDS: CARVEDILOL 3.125 MG TABLET PO SCH (09:00)
[2018-05-05] MEDS: ASPIRIN 325MG TABLET GT SCH (09:52)
[2018-05-05] MEDS: FAMOTIDINE 20MG TABLET GT SCH (09:52)
[2018-05-05] MEDS: LOSARTAN POTASSIUM 25 MG TABLET PO SCH (09:52)
[2018-05-05] MEDS: SODIUM HYPOCHLORITE 0.125% 473ML SOLUTION TOP SCH (09:53)
[2018-05-05] MEDS: INSULIN GLARGINE UD 100 UNITS/ML SYR SUBCUT SCH (10:45)
[2018-05-05] MEDS: ENOXAPARIN 40MG/0.4ML SYR SUBCUT SCH (14:43)
== END 2018-05-05 20:07 | DRG 3 ==
LOC: ER 17:36 → ENRESERV 18:04 → MICUSO 19:38 → EDBEDREQ 19:40 → 5EST 04-25 20:20
PROVIDERS: ADMIT Internal Medicine; ATTEND Internal Medicine
PROC: 5A1955Z Respiratory Ventilation, Greater than 96 Consecutive Hours (ICD-10-PCS; principal; 2018-04-18)
PROC: 0BH18EZ Insertion of Endotracheal Airway into Trachea, Via Natural or Artificial Opening Endoscopic (ICD-10-PCS; 2018-04-18)
PROC: 05H533Z Insertion of Infusion Device into Right Subclavian Vein, Percutaneous Approach (ICD-10-PCS; 2018-04-23)
PROC: B546ZZA Ultrasonography of Right Subclavian Vein, Guidance (ICD-10-PCS; 2018-04-23)
PROC: 0BH17EZ Insertion of Endotracheal Airway into Trachea, Via Natural or Artificial Opening (ICD-10-PCS; 2018-04-24)
PROC: 5A1955Z Respiratory Ventilation, Greater than 96 Consecutive Hours (ICD-10-PCS; 2018-04-24)
PROC: 0B110F4 Bypass Trachea to Cutaneous with Tracheostomy Device, Open Approach (ICD-10-PCS; 2018-04-25)
PROC: 0GBJ0ZZ Excision of Thyroid Gland Isthmus, Open Approach (ICD-10-PCS; 2018-04-25)
PROC: 0KBP0ZZ Excision of Left Hip Muscle, Open Approach (ICD-10-PCS; 2018-05-01)
PROC: 0KBN0ZZ Excision of Right Hip Muscle, Open Approach (ICD-10-PCS; 2018-05-01)
DX: A41.9 Sepsis, unspecified organism (principal); L89.154 Pressure ulcer of sacral region, stage 4; L89.324 Pressure ulcer of left buttock, stage 4; L89.314 Pressure ulcer of right buttock, stage 4; J69.0 Pneumonitis due to inhalation of food and vomit; E43 Unspecified severe protein-calorie malnutrition; I63.9 Cerebral infarction, unspecified; I21.4 Non-ST elevation (NSTEMI) myocardial infarction; I50.23 Acute on chronic systolic (congestive) heart failure; J96.21 Acute and chronic respiratory failure with hypoxia; E87.0 Hyperosmolality and hypernatremia; G93.40 Encephalopathy, unspecified; I42.9 Cardiomyopathy, unspecified; E87.1 Hypo-osmolality and hyponatremia; B37.49 Other urogenital candidiasis; I82.431 Acute embolism and thrombosis of right popliteal vein; I82.411 Acute embolism and thrombosis of right femoral vein; G81.91 Hemiplegia, unspecified affecting right dominant side; I49.1 Atrial premature depolarization; G31.9 Degenerative disease of nervous system, unspecified; H70.93 Unspecified mastoiditis, bilateral; I25.10 Atherosclerotic heart disease of native coronary artery without angina pectoris; F10.10 Alcohol abuse, uncomplicated; F03.90 Unspecified dementia, unspecified severity, without behavioral disturbance, psychotic disturbance, mood disturbance, and anxiety; R13.10 Dysphagia, unspecified; E11.9 Type 2 diabetes mellitus without complications; E87.6 Hypokalemia; I11.0 Hypertensive heart disease with heart failure; Z93.1 Gastrostomy status; Z78.1 Physical restraint status; I25.2 Old myocardial infarction; Z87.01 Personal history of pneumonia (recurrent); Z82.49 Family history of ischemic heart disease and other diseases of the circulatory system; I69.320 Aphasia following cerebral infarction; I69.391 Dysphagia following cerebral infarction
CPT/HCPCS: 31500; 36415; 36569; 36600; 70551; 71045; 76937; 78580; 80048; 80202; 82375; 82550; 82553; 82805; 82962; 83605; 83721; 83735; 83880; 84100; 84132; 84134; 84145; 84478; 84484; 85379; 86850; 86900; 87070; 87077; 87106; 87186; 93005; 93306; 93970; 94002; 94003; 94640; 96365; 96368; 96375; 99291; A6261; C1725; J0690; J0696; J1450; J1650; J1815; J2250; J2543; J2704; J3010; J3370; J3480; J3490; J7030; J7050; J7060; J7070; J7608; J7620